=== PATIENT | male | born 1975 | race Caucasian/White ===

== ENCOUNTER 2021-03-01 15:09 | Emergency (ER) | payer SELFPAY ==
[~2021-03-01] VITALS: Ht 177.8 cm; Wt 71.8 kg
--- NOTE | 2021-03-01 15:58 | NUR ---
PT HAS ANXIETY, CO YOUNG AND NAUSEA. PT SAID HE DID A DRUG A FEW DAYS AGO, BUT NOT SURE WHA IT WAS.
[2021-03-01] MEDS ORDERED: ONDANSETRON 2MG/ML, 2ML IVPush ONE (16:30)
[2021-03-01] MEDS ORDERED: SODIUM CHLORIDE FLUSH 10ML SYR IVF ONE (16:30)
[2021-03-01] MEDS ORDERED: MAALOX/HYOSCYAMINE/LIDOCAINE 45 ML BTL PO ONE (16:30)
[2021-03-01] MEDS ORDERED: SODIUM CHLORIDE 0.9% 1,000ML IVBOLUS ONE (16:30)
[2021-03-01] MEDS ORDERED: FAMOTIDINE 20 MG/2 ML IVPush ONE (16:30)
--- NOTE | 2021-03-01 16:30 | NUR ---
PT RESTING, MEDICATED PER ORDERS, IVF
[2021-03-01] MEDS ORDERED: FAMOTIDINE 20 MG/2 ML ONE (16:34)
[2021-03-01] MEDS ORDERED: ONDANSETRON 2MG/ML, 2ML ONE (16:34)
[2021-03-01] MEDS ORDERED: MAALOX/HYOSCYAMINE/LIDOCAINE 45 ML BTL ONE (16:39)
[2021-03-01 16:40] VITALS: BP 126/97
[2021-03-01 16:47] LABS: BASOPHILS % (AUTO) 1 % (0-1); EOSINOPHILS % (AUTO) 0 % (1-7); LYMPHOCYTES % (AUTO) 27 % (22-44); MEAN CORPUSCULAR HEMOGLOBIN 31.5 pg (27.5-34.5); MEAN CORPUSCULAR HGB CONC 34.9 g/dL (33.2-36.2); MEAN PLATELET VOLUME 8.6 fL (7.4-10.4); MONOCYTES % (AUTO) 8 % (2-9); NEUTROPHILS % (AUTO) 65 % (42-75); PLATELET COUNT 188 x10^3/uL (130-400); RED CELL DISTRIBUTION WIDTH 14.6 % (9.4-14.8)
[2021-03-01 16:52] LABS: MICROSCOPIC NOT IND
[2021-03-01 16:52] LABS: ALANINE AMINOTRANSFERASE 22 U/L (12-78); ALBUMIN 4.4 g/dL (3.4-5.0); ANION GAP 7 mmol/L (5-15); CALCIUM 9.3 mg/dL (8.5-10.1); CHLORIDE 104 mmol/L (98-107)
[2021-03-01 16:57] LABS: ALKALINE PHOSPHATASE 63 U/L (45-117); BILIRUBIN,TOTAL 0.9 mg/dL (0.2-1.0); CREATININE 0.79 mg/dL (0.7-1.3); TOTAL PROTEIN 8.4 g/dL (6.4-8.2); TROPONIN I < 0.015 ng/mL (0.000-0.045)
--- NOTE | 2021-03-01 17:35 | NUR ---
Patient given discharge instructions and they have confirmed that they understand the instructions. Patient ambulatory with steady gait.
== END 2021-03-01 17:37 | disposition home or self-care (01) ==
LOC: ED 17:30
DX: R10.84 Generalized abdominal pain (principal); R07.89 Other chest pain; F15.10 Other stimulant abuse, uncomplicated
CPT/HCPCS: 36415; 74022; 80053; 81003; 83690; 84484; 85025; 93005; 96361; 96374; 96375; 99285; J2405; J7030

== ENCOUNTER 2021-04-08 06:36 | Emergency (ER) | payer MEDICAID ==
[~2021-04-08] VITALS: Ht 177.8 cm; Wt 78.8 kg
[~2021-04-08 06:36] MED LIST: SERT50TA28 PO
--- NOTE | 2021-04-08 07:25 | NUR ---
USUAL METH/HEROIN/ETOH USE AND ASSOCIATED SI/ WAS IN [facility] FOR LAST FEW WEEKS. WAS SUPPOSED TO PICK HIM UP YESTERDAY AND DIDN'T SO HE RELAPSED with meth & etoh last night"
--- NOTE | 2021-04-08 07:30 | NUR ---
LAB AT BEDSIDE
[2021-04-08 07:41] LABS: BASOPHILS % (AUTO) 1 % (0-1); EOSINOPHILS % (AUTO) 0 % (1-7); LYMPHOCYTES % (AUTO) 24 % (22-44); MEAN CORPUSCULAR HEMOGLOBIN 30.9 pg (27.5-34.5); MEAN CORPUSCULAR HGB CONC 34.2 g/dL (33.2-36.2); MEAN PLATELET VOLUME 7.9 fL (7.4-10.4); MONOCYTES % (AUTO) 10 % (2-9); NEUTROPHILS % (AUTO) 66 % (42-75); PLATELET COUNT 200 x10^3/uL (130-400); RED BLOOD COUNT 5.46 x10^6/uL (4.38-5.82)
[2021-04-08 07:53] LABS: ANION GAP 9 mmol/L (5-15); CALCIUM 8.8 mg/dL (8.5-10.1); CHLORIDE 107 mmol/L (98-107); CREATININE 1.02 mg/dL (0.7-1.3)
--- NOTE | 2021-04-08 08:08 | NUR ---
MEDICATED PER EMAR-UPDATED ON ESTIMATED POC
--- NOTE | 2021-04-08 08:55 | NUR ---
WITH REASSESSMENT PATIENT MUCH MORE SHAKY, NAUSEATES, SWEATING, HR 160 ERP M[address] A[address] PIV AND MEDICATE WITH ATIVAN
[2021-04-08] MEDS ORDERED: LORazepam 2 MG/ML, 1ML ONE (08:59)
[2021-04-08] MEDS ORDERED: LORazepam 2 MG/ML, 1ML IVPush ONE ×2 (09:00)
--- NOTE | 2021-04-08 09:29 | NUR ---
WITH REASSESSMENT: HR TO 110, MUCH LESS SHAKY. pATIENT REPORT " I FEEL WAY BETTER."
[2021-04-08 09:33] LABS: SALICYLATE LEVEL < 1.7 mg/dL (2.8-20.0)
[2021-04-08 10:49] LABS: AMPHETAMINE SCREEN, URINE Positive (Negative); BARBITURATE SCREEN, URINE Negative (Negative); BENZODIAZEPINE SCREEN, URINE Negative (Negative); CANNABINOID SCREEN, URINE Negative (Negative); COCAINE SCREEN, URINE Negative (Negative); METHADONE SCREEN, URINE Negative (Negative); OPIATE SCREEN, URINE Positive (Negative)
[2021-04-08 11:16] VITALS: BP 132/55
[2021-04-08] MEDS ORDERED: LORazepam 1MG TABLET PO ONE (13:30)
--- NOTE | 2021-04-08 13:30 | NUR ---
RECEIVED REPORT FROM JO MCGHEE. PT SLEEPING CALMLY ON GURNEY, NAD WITH EQUAL CHEST RISE/FALL, NO NEEDS AT THIS TIME, SITTER IN VIEW.
[2021-04-08] MEDS ORDERED: LORazepam 1MG TABLET ONE (13:34)
--- NOTE | 2021-04-08 13:51 | NUR ---
Patient given discharge instructions and they have confirmed that they understand the instructions. Patient ambulatory with steady gait. NAD, all questions answered appropriately, denies additional needs at this time. No personal belongings left in room after discharge.
== END 2021-04-08 13:57 | disposition home or self-care (01) ==
LOC: ED 08:39
DX: F15.10 Other stimulant abuse, uncomplicated (principal); R51.9 Headache, unspecified; R00.0 Tachycardia, unspecified; Z90.89 Acquired absence of other organs; Z87.891 Personal history of nicotine dependence; Z88.2 Allergy status to sulfonamides; Z88.6 Allergy status to analgesic agent
CPT/HCPCS: 36415; 80048; 80299; 80307; 80320; 80329; 83735; 85025; 96374; 99284; J2060; Q0177; G0480